=== PATIENT | female | born 1985 | race Hispanic/Latino ===

== ENCOUNTER 2019-08-14 23:08 | Emergency (ER) | payer OTHER ==
[2019-08-14] MEDS ORDERED: ACETAMINOPHEN EXTRA STRENGTH 500 MG TABLET ONE (23:28)
== END 2019-08-15 00:29 | disposition home or self-care (01) ==
LOC: EDH 23:08
DX: R50.9 Fever, unspecified (principal); R51 Headache; R05 Cough; Z20.828 Contact with and (suspected) exposure to other viral communicable diseases; E11.9 Type 2 diabetes mellitus without complications